=== PATIENT | female | born 1955 | race Caucasian/White ===

== ENCOUNTER 2016-11-06 13:07 | Emergency (ER) | payer OTHER ==
[~2016-11-06] VITALS: Ht 165.1 cm; Wt 72.1 kg
[~2016-11-06 13:07] MED LIST: LOSA50TA6 PO
[2016-11-06] MEDS ORDERED: IV NORMAL SALINE 1000ML BAG 1,000 ML IV SCH (14:01)
[2016-11-06] MEDS ORDERED: 0.9 % SODIUM CHLORIDE 10 ML DISP.SYRIN. IV PRN (14:15)
--- NOTE | 2016-11-06 14:29 | RAD ---
Exam: PA and lateral chest radiograph History: Hypertension, headaches for the past week. Comparison: None. Findings: Cardiomediastinal silhouette is within normal limits for size. Bilateral lung gutierrez are free of focal infiltrate. No pleural effusion is seen. Cholecystectomy clips are present. Impression: No acute cardiopulmonary process.
[2016-11-06 14:51] LABS: BASO # 0.1 x10^3/uL (0.0-0.2); BASO % 1 % (0-3); EOS % 1 % (0-3); HEMATOCRIT 41.6 % (36.0-47.0); HEMOGLOBIN 13.9 g/dL (12.0-15.5); LYMPH # 1.8 x10^3/uL (1.0-4.8); LYMPH % 16 % (24-48); MEAN CORPUSCULAR HEMOGLOBIN 32 pg (25-35); MEAN CORPUSCULAR HGB CONC 34 g/dL (31-37); MEAN CORPUSCULAR VOLUME 94 fL (79-100); MONO % 11 % (0-9); NEUT % 72 % (31-73); PLATELET COUNT 227 x10^3/uL (140-400); RED BLOOD COUNT 4.43 x10^6/uL (3.50-5.40); RED CELL DISTRIBUTION WIDTH 13.1 % (11.5-14.5); WHITE BLOOD COUNT 11.4 x10^3/uL (4.0-11.0)
--- NOTE | 2016-11-06 15:01 | EKG ---
[facility] [address] [place] [address] Test Date: 2016-11-06 Test Time: 13:56:58 Pat Name: KRISTIE ARRINGTON Department: Room: Gender: F Watermaster: : 1955 Requested By: ANJUM VALLEJO Order Number: [id number] Reading MD: Yefri Oscar Measurements Intervals [place] Rate: 81 P: 42 CO: 142 QRS: -10 QRSD: 94 T: 38 QT: 372 QTc: 438 Interpretive Statements SINUS RHYTHM Electronically Signed On 11-10-2016 12:49:55 CDT by Yefri Oscar
--- NOTE | 2016-11-06 15:03 | PHYS DOC ---
Past Medical History Past Medical History: Cancer, Hypertension Past Surgical History: Other Additional Past Surgical Histo: r breast ca lumpectomy Alcohol Use: None Drug Use: None Adult General Chief Complaint Chief Complaint: HYPERTENSION HPI HPI Is is a pleasant 61-year-old female with a history of intermittent vertigo who presents with increased blood pressure last several days. She has noted intermittent headaches over the left faith that come and go she was concerned enough which had headaches that she just her blood pressure has been consistently 1 6-170s over 100. She denies any chest pain, shortness of breath, abdominal pain, change in medications, blood in her stool, blood in her urine or other symptoms. While at work today she noticed a slight headache over her left eyebrow which is not worsened of sudden onset with no focal neurologic deficits including no changes in vision no numbness and tingling no balance problems no change in voice or word finding problems. Described as mild and achy about a 3-5 out of 10 she does not use caffeinated drinks with exception of cough medication. Review of Systems Review of Systems Constitutional: Denies fever or chills [] Eyes: Denies change in visual acuity, redness, or eye pain [] HENT: Denies nasal congestion or sore throat [] Respiratory: Denies cough or shortness of breath [] Cardiovascular: No additional information not addressed in HPI [] GI: Denies abdominal pain, nausea, vomiting, bloody stools or diarrhea [] : Denies dysuria or hematuria [] Musculoskeletal: Denies back pain or joint pain [] Integument: Denies rash or skin lesions [] Neurologic: Mild temporal headache at times today's headache is over the left eyebrow. Worst of life sudden onset Endocrine: Denies polyuria or polydipsia [] Current Medications Current Medications Current Medications Medications (Trade) Dose Ordered Sig/Bk Start Time Stop Time Status Last Admin Dose Admin Sodium Chloride (Normal Saline Flush) 10 ml QSHIFT PRN 11/06/16 14:15 Allergies Allergies Allergies Coded Allergies Type Severity Reaction Last Updated Verified No Known Drug Allergies 10/18/14 No Physical Exam Physical Exam Constitutional: Well developed, well nourished, no acute distress, non-toxic appearance. [] HENT: Normocephalic, atraumatic, bilateral external ears normal, oropharynx moist, no oral exudates, nose normal. [] Eyes: PERRLA, EOMI, conjunctiva normal, no discharge. [] Neck: Normal range of motion, no tenderness, supple, no stridor. [] Cardiovascular:Heart rate regular rhythm, no murmur [] Lungs & Thorax: Bilateral breath sounds clear to auscultation [] Abdomen: Bowel sounds normal, soft, no tenderness, no masses, no pulsatile masses. [] Skin: Warm, dry, no erythema, no rash. [] Back: No tenderness, no CVA tenderness. [] Extremities: No tenderness, no cyanosis, no clubbing, ROM intact, no edema. [] Neurologic: Alert and oriented X 3, normal motor function, normal sensory function, no focal deficits noted. [] Psychologic: Affect normal, judgement normal, mood normal. [] Current Patient Data Vital Signs Vital Signs Date Time Temp Pulse Resp B/P (MAP) Pulse Ox O2 Delivery O2 Flow Rate FiO2 11/06/16 14:13 78 18 169/99 (122) 95 Room Air 11/06/16 14:02 99.0 99.0 Lab Values Laboratory Tests Test 11/06/16 14:20 White Blood Count 11.4 x10^3/uL (4.0-11.0) H Red Blood Count 4.43 x10^6/uL (3.50-5.40) Hemoglobin 13.9 g/dL (12.0-15.5) Hematocrit 41.6 % (36.0-47.0) Mean Corpuscular Volume 94 fL (79-100) Mean Corpuscular Hemoglobin 32 pg (25-35) Mean Corpuscular Hemoglobin Concent 34 g/dL (31-37) Red Cell Distribution Width 13.1 % (11.5-14.5) Platelet Count 227 x10^3/uL (140-400) Neutrophils (%) (Auto) 72 % (31-73) Lymphocytes (%) (Auto) 16 % (24-48) L Monocytes (%) (Auto) 11 % (0-9) H Eosinophils (%) (Auto) 1 % (0-3) Basophils (%) (Auto) 1 % (0-3) Neutrophils # (Auto) 8.2 x10^3uL (1.8-7.7) H Lymphocytes # (Auto) 1.8 x10^3/uL (1.0-4.8) Monocytes # (Auto) 1.2 x10^3/uL (0.0-1.1) H Eosinophils # (Auto) 0.1 x10^3/uL (0.0-0.7) Basophils # (Auto) 0.1 x10^3/uL (0.0-0.2) Laboratory Tests 11/06/16 14:20 Laboratory Tests Test 11/06/16 14:20 White Blood Count 11.4 x10^3/uL (4.0-11.0) Red Blood Count 4.43 x10^6/uL (3.50-5.40) Hemoglobin 13.9 g/dL (12.0-15.5) Hematocrit 41.6 % (36.0-47.0) Mean Corpuscular Volume 94 fL (79-100) Mean Corpuscular Hemoglobin 32 pg (25-35) Mean Corpuscular Hemoglobin Concent 34 g/dL (31-37) Red Cell Distribution Width 13.1 % (11.5-14.5) Platelet Count 227 x10^3/uL (140-400) Neutrophils (%) (Auto) 72 % (31-73) Lymphocytes (%) (Auto) 16 % (24-48) Monocytes (%) (Auto) 11 % (0-9) Eosinophils (%) (Auto) 1 % (0-3) Basophils (%) (Auto) 1 % (0-3) Neutrophils # (Auto) 8.2 x10^3uL (1.8-7.7) Lymphocytes # (Auto) 1.8 x10^3/uL (1.0-4.8) Monocytes # (Auto) 1.2 x10^3/uL (0.0-1.1) Eosinophils # (Auto) 0.1 x10^3/uL (0.0-0.7) Basophils # (Auto) 0.1 x10^3/uL (0.0-0.2) EKG EKG EKG timed at 1356 which is normal sinus rhythm slight left axis deviation otherwise normal looking EKG with no ST segment T-wave changes consistent with acute coronary ischemia. EKG read by Dr. Vallejo. [] Radiology/Procedures Radiology/Procedures [] IMAGING REPORT Signed PATIENT: KRISTIE ARRINGTON ACCOUNT: [id number] : 1955 LOCATION: ER AGE: 61 SEX: F EXAM STATUS: REG ER ORD. PHYSICIAN: ANJUM VALLEJO MD REASON: hypertension evaluation PROCEDURE: CHEST PA & LATERAL Exam: PA and lateral chest radiograph History: Hypertension, headaches for the past week. Comparison: None. Findings: Cardiomediastinal silhouette is within normal limits for size. Bilateral lung gutierrez are free of focal infiltrate. No pleural effusion is seen. Cholecystectomy clips are present. Impression: No acute cardiopulmonary process. DICTATED and SIGNED BY: CANDIDA RUSH MD DATE: 11/06/161425 CC: ANJUM VALLEJO MD; VADIM NOONAN DO ~ Course & Med Decision Making Course & Med Decision Making Pertinent Labs and Imaging studies reviewed. (See chart for details) Patient presents with hypertension and intermittent vertigo that has been plaguing her for years. She is a symptom like this time with the exception of a slight headache. On physical exam is no evidence of temporal arteritis, glaucoma , I doubt subarachnoid hemorrhage or intracranial hemorrhage or mass. Patient has a normal neuro exam and the stroke scale of 0. Patient has no risk for trauma or abuse home. Patient I talked about blood pressure issues that become problematic with above the level. There is no evidence of end organ damage at point with a normal EKG, normal chest x-ray normal. Creatinine and no evidence of elevated troponin. [] Dragon Disclaimer Dragon Disclaimer This electronic medical record was generated, in whole or in part, using a voice recognition dictation system. Departure Departure Impression: Primary Impression: Hypertension Disposition: 01 HOME, SELF-CARE Condition: IMPROVED Referrals: VADIM NOONAN DO (PCP) Patient Instructions: Hypertension Additional Instructions: Please return for any new or increasing symptoms, if you have any elevated blood pressures above 200/100 any symptoms of focal neurologic deficit change in vision chest pain abdominal pain or other concerns. Please follow-up with your primary care doctor for repeat evaluation and possible change of your medical regiment treatment of hypertension. ANJUM VALLEJO MD November 06, 2016 15:03
[2016-11-06 15:10] VITALS: BP 172/87
[2016-11-06] MEDS ORDERED: ACETAMINOPHEN 325 MG TABLET. PO ONE (15:15)
[2016-11-06] MEDS ORDERED: IBUPROFEN 600 MG TABLET. PO ONE (15:15)
[2016-11-06 15:23] LABS: CREATINE KINASE 51 U/L (26-192)
[2016-11-06 15:25] LABS: CKMB MASS < 0.5 ng/mL (0.0-3.6)
[2016-11-06 15:34] LABS: BILIRUBIN,URINE NEGATIVE (NEG); GLUCOSE,URINE NEGATIVE (NEG); NITRITE,URINE POSITIVE (NEG); PROTEIN,URINE 30 mg/dL (NEG-TRACE); UROBILINOGEN,URINE 0.2 mg/dL (0.2 mg/dL)
[2016-11-06 15:52] LABS: BACTERIA,URINE MANY /HPF (0-FEW); RBC,URINE 0 /HPF (0-2); WBC,URINE TNTC /HPF (0-4)
--- NOTE | 2016-11-08 15:38 | VNOTE ---
CALL BACK NOTE CALL BACK Microbiology 11/06/16 Urine Culture - Final, Complete 11/06/16 Urine Culture Result 1 (HOSSEIN) - Final, Complete 11/06/16 Antimicrobic Susceptibility - Final, Complete Patient called stating she was seen in the ED a couple days ago for hypertension. She states she had dysuria. She is requesting results from her urine culture she is in [place]. Her urine culture is positive for UTI. I called in a prescription for cephalexin 500 mg one by mouth twice a day at her pharmacy in [place]. Name of the pharmacy is [facility]. Phone number is KARTIK SOTO APRN Nov 08, 2016 15:38
== END 2016-11-06 15:35 | disposition home or self-care (01) ==
LOC: ER 13:07
DX: I10 Essential (primary) hypertension (principal)
CPT/HCPCS: 36415; 71020; 81001; 82553; 83880; 84484; 85027; 87086; 87186; 93005; 96360; 99285; J7030

== ENCOUNTER 2018-07-17 06:28 | Inpatient (IN) | payer MEDICARE, OTHER ==
[~2018-07-17] VITALS: Ht 165.1 cm; Wt 67.6 kg
[~2018-07-17 06:28] MED LIST changes: +LOSA-73 PO; -LOSA50TA6 PO
[2018-07-17] MEDS ORDERED: ACETAMINOPHEN 500 MG TABLET PO ONE (06:45)
[2018-07-17] MEDS ORDERED: IV NORMAL SALINE 1000ML BAG 1,000 ML IV SCH (06:45)
--- NOTE | 2018-07-17 08:00 | RAD ---
Examination: PORTABLE CHEST 1V History: fever,dizzy, fell today Comparison/Correlation: 11/06/2016 two-view chest x-ray exam Findings: A portable upright frontal view chest was obtained. Heart size and pulmonary vasculature are normal. No infiltrate or effusion. Bony structures are unremarkable. No pneumothorax. Right upper quadrant surgical clips are present. Impression: No active disease. If fracture is a persistent concern, consider further imaging. Electronically signed by: Amandeep Sutherland MD (07/17/2018 7:56 AM) [facility]
[2018-07-17 08:12] LABS: INFLUENZA A PATIENT NEGATIVE (NEGATIVE); INFLUENZA B PATIENT NEGATIVE (NEGATIVE)
[2018-07-17 08:32] LABS: BASO # 0.1 x10^3/uL (0.0-0.2); BASO % 1 % (0-3); EOS % 0 % (0-3); HEMOGLOBIN 11.4 g/dL (12.0-15.5); LYMPH # 0.8 x10^3/uL (1.0-4.8); LYMPH % 7 % (24-48); MEAN CORPUSCULAR HEMOGLOBIN 32 pg (25-35); MEAN CORPUSCULAR HGB CONC 34 g/dL (31-37); MEAN CORPUSCULAR VOLUME 94 fL (79-100); MONO # 1.2 x10^3/uL (0.0-1.1); MONO % 11 % (0-9); NEUT # 9.3 x10^3uL (1.8-7.7); NEUT % 81 % (31-73); PLATELET COUNT 89 x10^3/uL (140-400); RED BLOOD COUNT 3.63 x10^6/uL (3.50-5.40); RED CELL DISTRIBUTION WIDTH 14.3 % (11.5-14.5); WHITE BLOOD COUNT 11.4 x10^3/uL (4.0-11.0)
[2018-07-17 08:36] LABS: GFR 55.6; POTASSIUM 3.4 mmol/L (3.5-5.1)
[2018-07-17 08:51] LABS: ALBUMIN 3.4 g/dL (3.4-5.0); TOTAL BILIRUBIN 1.1 mg/dL (0.2-1.0); TOTAL PROTEIN 6.8 g/dL (6.4-8.2)
[2018-07-17 09:48] LABS: BILIRUBIN,URINE NEGATIVE (NEG); CLARITY,URINE CLOUDY; COLOR,URINE YELLOW; NITRITE,URINE POSITIVE (NEG); PH,URINE 5.5; PROTEIN,URINE NEGATIVE (NEG-TRACE); UROBILINOGEN,URINE 0.2 mg/dL (0.2 mg/dL)
[2018-07-17 09:54] LABS: BACTERIA,URINE MANY /HPF (0-FEW); RBC,URINE FOBS /HPF (0-2); WBC,URINE TNTC /HPF (0-4)
--- NOTE | 2018-07-17 10:06 | PHYS DOC ---
Past Medical History Past Medical History: Anxiety, Cancer, Hypertension Past Surgical History: Cholecystectomy, Tonsillectomy, Other Additional Past Surgical Histo: r breast ca lumpectomy Alcohol Use: None Drug Use: None Adult General Chief Complaint Chief Complaint: DIZZY/LIGHT HEADED HPI HPI Patient is 63-year-old female who presents with complaint of confusion, headache and dizziness. Patient states that she had fallen at her house while she was up trying to walk to the bathroom this morning. She does indicate that she hit the back of her head but did not lose consciousness. She complains of a mild headache at this time. She also indicates that she has some lower back pain and states the back pain was present prior to the fall. She states that she has had some urinary incontinence over the last few days but states that she has not had any urinary discomfort per se. Patient does state that she had felt confused out at the house and is still feeling like she is out of sorts. Patient states that she just recently had an MRI of the brain due to having continued vertigo/disequilibrium since June. Review of Systems Review of Systems Constitutional: Positive fever and chills [] Respiratory: Denies cough or shortness of breath [] Cardiovascular: No additional information not addressed in HPI [] GI: Denies abdominal pain, nausea, vomiting or diarrhea [] : Positive urinary frequency and stress incontinence [] Musculoskeletal: Complains of lower back pain [] Neurologic: Complains of headache, dizziness, generalized weakness without sensory changes [] All other systems were reviewed and found to be within normal limits, except as documented in this note. Current Medications Current Medications Current Medications Medications (Trade) Dose Ordered Sig/[facility] Start Time Stop Time Status Last Admin Dose Admin Acetaminophen (Tylenol) 1,000 mg 1X ONCE 07/17/18 06:45 07/17/18 06:46 DC 07/17/18 08:13 1,000 MG Sodium Chloride 1,000 ml @ 1,000 mls/hr Q1H 07/17/18 06:45 07/17/18 07:44 DC 07/17/18 08:15 1,000 MLS/HR Allergies Allergies Allergies Uncoded Allergies Type Severity Reaction Last Updated Verified SHINGLES VACCINE Allergy Mild L BREAST BRUISED 07/17/18 Physical Exam Physical Exam Constitutional: Well developed, well nourished, no acute distress, non-toxic appearance. [] HENT: Normocephalic, atraumatic, bilateral external ears normal, oropharynx moist, no oral exudates, nose normal. [] Eyes: PERRLA, EOMI, conjunctiva normal, no discharge. [] Neck: Normal range of motion, no tenderness, supple, no stridor. [] Cardiovascular: Regular rate and rhythm [] Lungs & Thorax: Bilateral breath sounds clear to auscultation [] Abdomen: Bowel sounds normal, soft, no tenderness. [] Skin: Warm, dry, no erythema, no rash. [] Extremities: No tenderness, no cyanosis, no clubbing, ROM intact, no edema. [] Neurologic: Awake and alert, normal motor function, normal sensory function, no focal deficits noted. [] Current Patient Data Vital Signs Vital Signs Date Time Temp Pulse Resp B/P (MAP) Pulse Ox O2 Delivery O2 Flow Rate FiO2 07/17/18 07:01 90 18 94 07/17/18 06:28 100.8 127/74 (91) Room Air 100.8 Lab Values Laboratory Tests Test 07/17/18 07:42 07/17/18 08:00 Influenza Type A Antigen Negative (NEGATIVE) Influenza Type B Antigen Negative (NEGATIVE) White Blood Count 11.4 x10^3/uL (4.0-11.0) H Red Blood Count 3.63 x10^6/uL (3.50-5.40) Hemoglobin 11.4 g/dL (12.0-15.5) L Hematocrit 34.0 % (36.0-47.0) L Mean Corpuscular Volume 94 fL (79-100) Mean Corpuscular Hemoglobin 32 pg (25-35) Mean Corpuscular Hemoglobin Concent 34 g/dL (31-37) Red Cell Distribution Width 14.3 % (11.5-14.5) Platelet Count 89 x10^3/uL (140-400) L Neutrophils (%) (Auto) 81 % (31-73) H Lymphocytes (%) (Auto) 7 % (24-48) L Monocytes (%) (Auto) 11 % (0-9) H Eosinophils (%) (Auto) 0 % (0-3) Basophils (%) (Auto) 1 % (0-3) Neutrophils # (Auto) 9.3 x10^3uL (1.8-7.7) H Lymphocytes # (Auto) 0.8 x10^3/uL (1.0-4.8) L Monocytes # (Auto) 1.2 x10^3/uL (0.0-1.1) H Eosinophils # (Auto) 0.0 x10^3/uL (0.0-0.7) Basophils # (Auto) 0.1 x10^3/uL (0.0-0.2) Sodium Level 138 mmol/L (136-145) Potassium Level 3.4 mmol/L (3.5-5.1) L Chloride Level 100 mmol/L (98-107) Carbon Dioxide Level 28 mmol/L (21-32) Anion Gap 10 (6-14) Blood Urea Nitrogen 31 mg/dL (7-20) H Creatinine 1.0 mg/dL (0.6-1.0) Estimated GFR (Cockcroft-Gault) 55.6 BUN/Creatinine Ratio 31 (6-20) H Glucose Level 106 mg/dL (70-99) H Lactic Acid Level 0.7 mmol/L (0.4-2.0) Calcium Level 9.0 mg/dL (8.5-10.1) Total Bilirubin 1.1 mg/dL (0.2-1.0) H Aspartate Amino Transferase (AST) 14 U/L (15-37) L Alanine Aminotransferase (ALT) 22 U/L (14-59) Alkaline Phosphatase 76 U/L (46-116) Total Protein 6.8 g/dL (6.4-8.2) Albumin 3.4 g/dL (3.4-5.0) Albumin/Globulin Ratio 1.0 (1.0-1.7) Group A Streptococcus Rapid Negative (NEGATIVE) Laboratory Tests 07/17/18 08:00 Laboratory Tests 07/17/18 08:00 EKG EKG [] Radiology/Procedures Radiology/Procedures [] Course & Med Decision Making Course & Med Decision Making Pertinent Labs and Imaging studies reviewed. (See chart for details) [] Dragon Disclaimer Dragon Disclaimer This electronic medical record was generated, in whole or in part, using a voice recognition dictation system. Departure Departure Impression: Primary Impression: UTI (urinary tract infection) Additional Impression: Altered mental state Disposition: ADMITTED INPATIENT Admitting Physician: Other Condition: IMPROVED (Dr. Brannon) Referrals: VADIM NOONAN DO (PCP) Problem Qualifiers Primary Impression: UTI (urinary tract infection) Urinary tract infection type: site unspecified Hematuria presence: without hematuria Qualified Codes: N39.0 - Urinary tract infection, site not specified Additional Impression: Altered mental state Altered mental status type: disorientation Qualified Codes: R41.0 - Disorientation, unspecified JJ VYAS Jr., DO Jul 17, 2018 10:06
[2018-07-17] MEDS ORDERED: cefTRIAXone IV Push 1 GM VIAL. IVP ONE (10:15)
[2018-07-17] MEDS ORDERED: ONDANSETRON PF 4 MG/2 ML VIAL. IV PRN (10:15)
--- NOTE | 2018-07-17 10:18 | RAD ---
CT HEAD INDICATION: HEAD INJURY COMPARISON: None Available. Exposure: One or more of the following individualized dose reduction techniques were utilized for this examination: 1. Automated exposure control 2. Adjustment of the mA and/or kV according to patient size 3. Use of iterative reconstruction technique TECHNIQUE: 5 mm contiguous axial images were obtained from the skull base to the vertex in both bone and soft tissue algorithm. FINDINGS: Mild bilateral periventricular white matter hypodensities likely chronic small vessel ischemic disease. No evidence of acute intracranial hemorrhage. No extra-axial fluid collections. No mass effect or midline shift. Ventricular size is appropriate. Basal cisterns are patent. No fractures identified.Barry-white differentiation is preserved.Globes and orbits are within normal limits. Paranasal sinuses and mastoid air cells are clear. IMPRESSION: No acute intracranial findings. Electronically signed by: Oseas Reyes MD (07/17/2018 10:14 AM) [id number]
[2018-07-17 11:56] VITALS: BP 113/55
[2018-07-17] MEDS ORDERED: CALC-337 PO (12:40)
[2018-07-17] MEDS ORDERED: MULT1TAB52 PO (12:40)
[2018-07-17] MEDS: IV NORMAL SALINE 1000ML BAG 1,000 ML IV SCH ×2 (12:42→20:55)
[2018-07-17 15:00] VITALS: BP 129/59
[2018-07-17] MEDS: CALCIUM CARB/VIT D3 500/200 TABLET. PO SCH (17:44)
[2018-07-17] MEDS: LOSARTAN POTASSIUM 50 MG TABLET. PO SCH (17:48)
--- NOTE | 2018-07-17 17:50 | NUR ---
[employer] went in to do orthostatic blood pressures per Dr orders. Pt refused and reported she felt dizzy. Returned to room with extra staff and Orthos completed. lying 178/87 sitting 183/97 standing 168/83. Pt did complain of feeling faint while standing. Pt was able to verbalize thoughts but reports this is similar to the episode that brought her into the ER. Pt able to swallow and losartan and calcium given. Pt was assisted to [facility] with assist x2. She was able to urinate. Denies pain, numbness or tingling. Denies nausea. Pt appears scared. Was shaky and clammy. FSBS 90. Call was placed to Dr Brannon and I spoke to Dr Schlute. Reviewed all my findings and at this time he gave instructions to monitor pt. Pt continues on telemetry and is SR in the 80s. No arrhythmias noted since admitted to unit.
--- NOTE | 2018-07-17 18:21 | PDOC1 ---
History and Physical Date of Admission Date of Admission 07/17/2018 Identification/Chief Complaint Chief Complaint I was confused Problems: (1) Altered mental state (2) UTI (urinary tract infection) Source Source: Chart review, Patient History of Present Illness History of Present Illness Patient is a 63-year-old female with past medical history off breast Cancer and Hypertension. Patient Is in Remission, She Was in Her Usual State of Health until This Morning When She Woke up to Go to the Bathroom. Last Thing She Remembers Is Sitting at the Edge of Her Bed She Remembers Something Was Being on the Floor of Her Bathroom Where She Had an "Accident". Most of Her Story Is Provided by the Did Not Witness Seizure -Like Activity There Was No Evidence of Trauma to Her Head. The Patient Denies Any Aura Type of Symptoms She Has Not Had Tongue Trauma. The Patient Apparently Was Somewhat Confused for about 10 Minutes. The Patient's Decided to Call EMS Due To the Symptoms of of his . Patient has not had any recent changes to her medications. Of note is that she was recently evaluated for vertigo. She was also sent for an MRI of the head apparently she wanted to be ruled out for an acoustic neuroma. The patient denies headaches on the regular basis and has been cleared also by her oncologist in follow-up for her rest cancer. She had a bad reaction to her zoster shingles vaccine that prompted this workup since she had some left arm swelling and redness. The result of her workup was negative. She was brought to the emergency department where she was evaluated and found to have a urinary tract infection patient has urinary incontinence and has had some urinary discomfort over the last couple days no fever or chills were reported no costovertebral angle tenderness reported either. We have been asked to admit the patient for observation and treatment of her urinary tract infection Current Problem List Problem List Problems Medical Problems: (1) Altered mental state Status: Acute (2) UTI (urinary tract infection) Status: Acute Current Medications Current Medications Current Medications Medications (Trade) Dose Ordered Sig/Bk Start Time Stop Time Status Last Admin Dose Admin Acetaminophen (Tylenol) 650 mg PRN Q4HRS PRN 07/17/18 10:15 07/18/18 10:14 Calcium/Vitamin D (Oscal D 500mg/ 200uts) 1 tab BIDWMEALS 07/17/18 17:00 07/17/18 17:44 1 TAB Ceftriaxone Sodium (Rocephin) 1 gm 1X ONCE 07/17/18 10:15 07/17/18 10:16 DC 07/17/18 10:24 1 GM Losartan Potassium (Cozaar) 50 mg DAILY 07/18/18 09:00 UNV Multivitamins (Thera M Plus) 1 tab DAILY 07/18/18 09:00 Ondansetron HCl (Zofran) 4 mg PRN Q8HRS PRN 07/17/18 10:15 07/18/18 10:14 Sodium Chloride 1,000 ml @ 125 mls/hr Q8H 07/17/18 10:07 07/18/18 10:06 07/17/18 12:42 125 MLS/HR Allergies Allergies Allergies Uncoded Allergies Type Severity Reaction Last Updated Verified SHINGLES VACCINE Allergy Mild L BREAST BRUISED 07/17/18 ROS Review of System CONSTITUTIONAL: No fever or chills EYES: No recent changes SKIN: No rash or itching CARDIOVASCULAR: No chest pain, syncope, palpitations, or edema RESPIRATORY: No SOB or cough GASTROINTESTINAL: No nausea, vomiting or abdominal pain NEUROLOGICAL: No headaches or weakness ENDOCRINE: No cold or heat intolerance GENITOURINARY: No urgency or frequency of urination MUSCULOSKELETAL: No back pain or joint pain LYMPHATICS: No enlarged lymph nodes PSYCHIATRIC: No anxiety or depression Physical Exam Physical Exam GEN.: No apparent distress. Alert and oriented. HEENT: Head is normocephalic, atraumatic NECK: Supple. LUNGS: Clear to auscultation. HEART: RRR, S1, S2 present. Peripheral pulses intact ABDOMEN: Soft, nontender. Positive bowel sounds. EXTREMITIES: Without any cyanosis. NEUROLOGIC: Normal speech, normal tone PSYCHIATRIC: Normal affect, normal mood. SKIN: No ulcerations Vitals Vitals Vital Signs Date Time Temp Pulse Resp B/P (MAP) Pulse Ox O2 Delivery O2 Flow Rate FiO2 07/17/18 17:48 84 178/87 07/17/18 15:00 97.9 18 97 Room Air 97.9 Labs Labs Laboratory Tests Test 07/17/18 07:42 07/17/18 08:00 07/17/18 09:05 Influenza Type A Antigen Negative (NEGATIVE) Influenza Type B Antigen Negative (NEGATIVE) White Blood Count 11.4 x10^3/uL (4.0-11.0) Red Blood Count 3.63 x10^6/uL (3.50-5.40) Hemoglobin 11.4 g/dL (12.0-15.5) Hematocrit 34.0 % (36.0-47.0) Mean Corpuscular Volume 94 fL (79-100) Mean Corpuscular Hemoglobin 32 pg (25-35) Mean Corpuscular Hemoglobin Concent 34 g/dL (31-37) Red Cell Distribution Width 14.3 % (11.5-14.5) Platelet Count 89 x10^3/uL (140-400) Neutrophils (%) (Auto) 81 % (31-73) Lymphocytes (%) (Auto) 7 % (24-48) Monocytes (%) (Auto) 11 % (0-9) Eosinophils (%) (Auto) 0 % (0-3) Basophils (%) (Auto) 1 % (0-3) Neutrophils # (Auto) 9.3 x10^3uL (1.8-7.7) Lymphocytes # (Auto) 0.8 x10^3/uL (1.0-4.8) Monocytes # (Auto) 1.2 x10^3/uL (0.0-1.1) Eosinophils # (Auto) 0.0 x10^3/uL (0.0-0.7) Basophils # (Auto) 0.1 x10^3/uL (0.0-0.2) Sodium Level 138 mmol/L (136-145) Potassium Level 3.4 mmol/L (3.5-5.1) Chloride Level 100 mmol/L (98-107) Carbon Dioxide Level 28 mmol/L (21-32) Anion Gap 10 (6-14) Blood Urea Nitrogen 31 mg/dL (7-20) Creatinine 1.0 mg/dL (0.6-1.0) Estimated GFR (Cockcroft-Gault) 55.6 BUN/Creatinine Ratio 31 (6-20) Glucose Level 106 mg/dL (70-99) Lactic Acid Level 0.7 mmol/L (0.4-2.0) Calcium Level 9.0 mg/dL (8.5-10.1) Total Bilirubin 1.1 mg/dL (0.2-1.0) Aspartate Amino Transf (AST/SGOT) 14 U/L (15-37) Alanine Aminotransferase (ALT/SGPT) 22 U/L (14-59) Alkaline Phosphatase 76 U/L (46-116) Total Protein 6.8 g/dL (6.4-8.2) Albumin 3.4 g/dL (3.4-5.0) Albumin/Globulin Ratio 1.0 (1.0-1.7) Group A Streptococcus Rapid Negative (NEGATIVE) Urine Collection Type Unknown Urine Color Yellow Urine Clarity Cloudy Urine pH 5.5 Urine Specific [place] 1.015 Urine Protein Negative mg/dL (NEG-TRACE) Urine Glucose (UA) Negative mg/dL (NEG) Urine Ketones (Stick) Negative mg/dL (NEG) Urine Blood Moderate (NEG) Urine Nitrite Positive (NEG) Urine Bilirubin Negative (NEG) Urine Urobilinogen Dipstick 0.2 mg/dL (0.2 mg/dL) Urine Leukocyte Esterase Large (NEG) Urine RBC Fobs /HPF (0-2) Urine WBC Tntc /HPF (0-4) Urine Bacteria Many /HPF (0-FEW) Laboratory Tests Test 07/17/18 07:42 07/17/18 08:00 07/17/18 09:05 Influenza Type A Antigen Negative (NEGATIVE) Influenza Type B Antigen Negative (NEGATIVE) White Blood Count 11.4 x10^3/uL (4.0-11.0) Red Blood Count 3.63 x10^6/uL (3.50-5.40) Hemoglobin 11.4 g/dL (12.0-15.5) Hematocrit 34.0 % (36.0-47.0) Mean Corpuscular Volume 94 fL (79-100) Mean Corpuscular Hemoglobin 32 pg (25-35) Mean Corpuscular Hemoglobin Concent 34 g/dL (31-37) Red Cell Distribution Width 14.3 % (11.5-14.5) Platelet Count 89 x10^3/uL (140-400) Neutrophils (%) (Auto) 81 % (31-73) Lymphocytes (%) (Auto) 7 % (24-48) Monocytes (%) (Auto) 11 % (0-9) Eosinophils (%) (Auto) 0 % (0-3) Basophils (%) (Auto) 1 % (0-3) Neutrophils # (Auto) 9.3 x10^3uL (1.8-7.7) Lymphocytes # (Auto) 0.8 x10^3/uL (1.0-4.8) Monocytes # (Auto) 1.2 x10^3/uL (0.0-1.1) Eosinophils # (Auto) 0.0 x10^3/uL (0.0-0.7) Basophils # (Auto) 0.1 x10^3/uL (0.0-0.2) Sodium Level 138 mmol/L (136-145) Potassium Level 3.4 mmol/L (3.5-5.1) Chloride Level 100 mmol/L (98-107) Carbon Dioxide Level 28 mmol/L (21-32) Anion Gap 10 (6-14) Blood Urea Nitrogen 31 mg/dL (7-20) Creatinine 1.0 mg/dL (0.6-1.0) Estimated GFR (Cockcroft-Gault) 55.6 BUN/Creatinine Ratio 31 (6-20) Glucose Level 106 mg/dL (70-99) Lactic Acid Level 0.7 mmol/L (0.4-2.0) Calcium Level 9.0 mg/dL (8.5-10.1) Total Bilirubin 1.1 mg/dL (0.2-1.0) Aspartate Amino Transf (AST/SGOT) 14 U/L (15-37) Alanine Aminotransferase (ALT/SGPT) 22 U/L (14-59) Alkaline Phosphatase 76 U/L (46-116) Total Protein 6.8 g/dL (6.4-8.2) Albumin 3.4 g/dL (3.4-5.0) Albumin/Globulin Ratio 1.0 (1.0-1.7) Group A Streptococcus Rapid Negative (NEGATIVE) Urine Collection Type Unknown Urine Color Yellow Urine Clarity Cloudy Urine pH 5.5 Urine Specific [place] 1.015 Urine Protein Negative mg/dL (NEG-TRACE) Urine Glucose (UA) Negative mg/dL (NEG) Urine Ketones (Stick) Negative mg/dL (NEG) Urine Blood Moderate (NEG) Urine Nitrite Positive (NEG) Urine Bilirubin Negative (NEG) Urine Urobilinogen Dipstick 0.2 mg/dL (0.2 mg/dL) Urine Leukocyte Esterase Large (NEG) Urine RBC Fobs /HPF (0-2) Urine WBC Tntc /HPF (0-4) Urine Bacteria Many /HPF (0-FEW) VTE Prophylaxis Ordered VTE Prophylaxis Devices: No VTE Pharmacological Prophylaxi: Yes Assessment/Plan Assessment/Plan UTI Fall from own height essential hypertension history of breast can er in remission history of vertigo status post ent evaluation recent MRI of the head with normal findings as per patient Plan: will try to request records contknue with rocephin follow cultures reassess in the am resume home meds further recommendations based on clinical c ourse fall precautions DVt prophylaxis:lovenox Problem Qualifiers (1) Altered mental state: Altered mental status type: disorientation Qualified Codes: R41.0 - Disorientation, unspecified (2) UTI (urinary tract infection): Urinary tract infection type: site unspecified Hematuria presence: without hematuria Qualified Codes: N39.0 - Urinary tract infection, site not specified FLORIAN HOLDEN MD Jul 17, 2018 18:21
[2018-07-17 19:54] VITALS: BP 148/72
[2018-07-17] MEDS: ACETAMINOPHEN 325 MG TABLET. PO PRN (20:54)
[2018-07-17 23:10] VITALS: BP 111/62
[2018-07-18] VITALS (10 sets, daily range): BP systolic 105–141; BP diastolic 49–97
[2018-07-18 03:21] LABS: BASO # 0.1 x10^3/uL (0.0-0.2); BASO % 1 % (0-3); EOS # 0.1 x10^3/uL (0.0-0.7); EOS % 1 % (0-3); HEMATOCRIT 39.8 % (36.0-47.0); LYMPH # 1.7 x10^3/uL (1.0-4.8); LYMPH % 17 % (24-48); MEAN CORPUSCULAR HEMOGLOBIN 31 pg (25-35); MEAN CORPUSCULAR HGB CONC 33 g/dL (31-37); MEAN CORPUSCULAR VOLUME 95 fL (79-100); MONO # 1.3 x10^3/uL (0.0-1.1); MONO % 12 % (0-9); NEUT # 7.2 x10^3uL (1.8-7.7); NEUT % 69 % (31-73); PLATELET COUNT 216 x10^3/uL (140-400); RED BLOOD COUNT 4.19 x10^6/uL (3.50-5.40); RED CELL DISTRIBUTION WIDTH 14.3 % (11.5-14.5); WHITE BLOOD COUNT 10.5 x10^3/uL (4.0-11.0)
[2018-07-18 03:43] LABS: CALCIUM 8.9 mg/dL (8.5-10.1); CREATININE 0.8 mg/dL (0.6-1.0); POTASSIUM 3.7 mmol/L (3.5-5.1)
[2018-07-18] MEDS: IV NORMAL SALINE 1000ML BAG 1,000 ML IV SCH (04:15)
[2018-07-18] MEDS: CALCIUM CARB/VIT D3 500/200 TABLET. PO SCH ×2 (08:30→17:51)
[2018-07-18] MEDS: LOSARTAN POTASSIUM 50 MG TABLET. PO SCH (08:30)
[2018-07-18] MEDS: ACETAMINOPHEN 325 MG TABLET. PO PRN (08:31)
[2018-07-18] MEDS: MULTIVITAMIN with MINERAL TABLET. PO SCH (08:34)
[2018-07-18] MEDS ORDERED: LOSARTAN POTASSIUM 50 MG TABLET. PO SCH (09:00)
--- NOTE | 2018-07-18 11:33 | PDOC ---
PROGRESS NOTES Chief Complaint Chief Complaint UTI Confusion secondary to the above versus hypertensive encephalopathy Essential hypertension with episodes of uncontrolled blood pressure Plan Ruddy Continue with losartan We'll give second dose of Rocephin today Wait for cultures to be reported in the a.m. Reassess in the a.m. hopefully discharge History of Present Illness History of Present Illness Patient relates having had another episode of somewhat not feeling well in her head. The patient says that she couldn't get her head together and at that moment apparently did check her blood pressure was high. Reassurance has been provided no slurred speech no focal neurological deficits were reported either by the patient or the nursing staff. No fever or chills reported Vitals Vitals Vital Signs Date Time Temp Pulse Resp B/P (MAP) Pulse Ox O2 Delivery O2 Flow Rate FiO2 07/18/18 11:00 112/65 (81) 07/18/18 11:00 98.1 58 18 96 Room Air 98.1 Physical Exam Physical Exam Gen.: well-developed well-nourished in no apparent distress Head: Normal shape atraumatic Eyes: Pupils equal reactive to light and accommodation, normal conjunctivae and lids Ears: Normal shape Nose: Normal shape no trauma Mouth: No exudates of the back of throat no thrush no lesions Neck: Supple no JVD no carotid bruit or lymphadenopathy no thyromegaly Chest: Lungs clear to auscultation with good inspiratory effort no crackles rales or rhonchi Cardiovascular: S1-S2 regular rhythm no murmurs gallops or rubs Abdomen: Bowel sounds present soft nontender no hepatosplenomegaly appreciated sign Extremities: No clubbing no cyanosis no edema peripheral pulses palpated bilaterally Neurological: Alert awake oriented in person time place and situation, cranial nerves II through XII intact, no motor or sensory deficits appreciated Psych: Appropriate mood, cooperative Labs LABS Laboratory Tests Test 07/17/18 17:50 07/18/18 02:50 Glucose (Fingerstick) 90 mg/dL (70-99) White Blood Count 10.5 x10^3/uL (4.0-11.0) Red Blood Count 4.19 x10^6/uL (3.50-5.40) Hemoglobin 13.0 g/dL (12.0-15.5) Hematocrit 39.8 % (36.0-47.0) Mean Corpuscular Volume 95 fL (79-100) Mean Corpuscular Hemoglobin 31 pg (25-35) Mean Corpuscular Hemoglobin Concent 33 g/dL (31-37) Red Cell Distribution Width 14.3 % (11.5-14.5) Platelet Count 216 x10^3/uL (140-400) Neutrophils (%) (Auto) 69 % (31-73) Lymphocytes (%) (Auto) 17 % (24-48) Monocytes (%) (Auto) 12 % (0-9) Eosinophils (%) (Auto) 1 % (0-3) Basophils (%) (Auto) 1 % (0-3) Neutrophils # (Auto) 7.2 x10^3uL (1.8-7.7) Lymphocytes # (Auto) 1.7 x10^3/uL (1.0-4.8) Monocytes # (Auto) 1.3 x10^3/uL (0.0-1.1) Eosinophils # (Auto) 0.1 x10^3/uL (0.0-0.7) Basophils # (Auto) 0.1 x10^3/uL (0.0-0.2) Sodium Level 144 mmol/L (136-145) Potassium Level 3.7 mmol/L (3.5-5.1) Chloride Level 109 mmol/L (98-107) Carbon Dioxide Level 29 mmol/L (21-32) Anion Gap 6 (6-14) Blood Urea Nitrogen 17 mg/dL (7-20) Creatinine 0.8 mg/dL (0.6-1.0) Estimated GFR (Cockcroft-Gault) 72.0 Glucose Level 83 mg/dL (70-99) Calcium Level 8.9 mg/dL (8.5-10.1) Review of Systems Review of Systems Reviewed and found pertinent only as per history of present illness otherwise 14 point review is negative Assessment and Plan Assessmemt and Plan Problems Medical Problems: (1) Altered mental state Status: Acute (2) UTI (urinary tract infection) Status: Acute Comment Review of Relevant I have reviewed the following items yony (where applicable) has been applied. Labs Laboratory Tests Test 07/17/18 07:42 07/17/18 08:00 07/17/18 09:05 07/17/18 17:50 Influenza Type A Antigen Negative (NEGATIVE) Influenza Type B Antigen Negative (NEGATIVE) White Blood Count 11.4 x10^3/uL (4.0-11.0) Red Blood Count 3.63 x10^6/uL (3.50-5.40) Hemoglobin 11.4 g/dL (12.0-15.5) Hematocrit 34.0 % (36.0-47.0) Mean Corpuscular Volume 94 fL (79-100) Mean Corpuscular Hemoglobin 32 pg (25-35) Mean Corpuscular Hemoglobin Concent 34 g/dL (31-37) Red Cell Distribution Width 14.3 % (11.5-14.5) Platelet Count 89 x10^3/uL (140-400) Neutrophils (%) (Auto) 81 % (31-73) Lymphocytes (%) (Auto) 7 % (24-48) Monocytes (%) (Auto) 11 % (0-9) Eosinophils (%) (Auto) 0 % (0-3) Basophils (%) (Auto) 1 % (0-3) Neutrophils # (Auto) 9.3 x10^3uL (1.8-7.7) Lymphocytes # (Auto) 0.8 x10^3/uL (1.0-4.8) Monocytes # (Auto) 1.2 x10^3/uL (0.0-1.1) Eosinophils # (Auto) 0.0 x10^3/uL (0.0-0.7) Basophils # (Auto) 0.1 x10^3/uL (0.0-0.2) Sodium Level 138 mmol/L (136-145) Potassium Level 3.4 mmol/L (3.5-5.1) Chloride Level 100 mmol/L (98-107) Carbon Dioxide Level 28 mmol/L (21-32) Anion Gap 10 (6-14) Blood Urea Nitrogen 31 mg/dL (7-20) Creatinine 1.0 mg/dL (0.6-1.0) Estimated GFR (Cockcroft-Gault) 55.6 BUN/Creatinine Ratio 31 (6-20) Glucose Level 106 mg/dL (70-99) Lactic Acid Level 0.7 mmol/L (0.4-2.0) Calcium Level 9.0 mg/dL (8.5-10.1) Total Bilirubin 1.1 mg/dL (0.2-1.0) Aspartate Amino Transf (AST/SGOT) 14 U/L (15-37) Alanine Aminotransferase (ALT/SGPT) 22 U/L (14-59) Alkaline Phosphatase 76 U/L (46-116) Total Protein 6.8 g/dL (6.4-8.2) Albumin 3.4 g/dL (3.4-5.0) Albumin/Globulin Ratio 1.0 (1.0-1.7) Group A Streptococcus Rapid Negative (NEGATIVE) Urine Collection Type Unknown Urine Color Yellow Urine Clarity Cloudy Urine pH 5.5 Urine Specific [place] 1.015 Urine Protein Negative mg/dL (NEG-TRACE) Urine Glucose (UA) Negative mg/dL (NEG) Urine Ketones (Stick) Negative mg/dL (NEG) Urine Blood Moderate (NEG) Urine Nitrite Positive (NEG) Urine Bilirubin Negative (NEG) Urine Urobilinogen Dipstick 0.2 mg/dL (0.2 mg/dL) Urine Leukocyte Esterase Large (NEG) Urine RBC Fobs /HPF (0-2) Urine WBC Tntc /HPF (0-4) Urine Bacteria Many /HPF (0-FEW) Glucose (Fingerstick) 90 mg/dL (70-99) Test 07/18/18 02:50 White Blood Count 10.5 x10^3/uL (4.0-11.0) Red Blood Count 4.19 x10^6/uL (3.50-5.40) Hemoglobin 13.0 g/dL (12.0-15.5) Hematocrit 39.8 % (36.0-47.0) Mean Corpuscular Volume 95 fL (79-100) Mean Corpuscular Hemoglobin 31 pg (25-35) Mean Corpuscular Hemoglobin Concent 33 g/dL (31-37) Red Cell Distribution Width 14.3 % (11.5-14.5) Platelet Count 216 x10^3/uL (140-400) Neutrophils (%) (Auto) 69 % (31-73) Lymphocytes (%) (Auto) 17 % (24-48) Monocytes (%) (Auto) 12 % (0-9) Eosinophils (%) (Auto) 1 % (0-3) Basophils (%) (Auto) 1 % (0-3) Neutrophils # (Auto) 7.2 x10^3uL (1.8-7.7) Lymphocytes # (Auto) 1.7 x10^3/uL (1.0-4.8) Monocytes # (Auto) 1.3 x10^3/uL (0.0-1.1) Eosinophils # (Auto) 0.1 x10^3/uL (0.0-0.7) Basophils # (Auto) 0.1 x10^3/uL (0.0-0.2) Sodium Level 144 mmol/L (136-145) Potassium Level 3.7 mmol/L (3.5-5.1) Chloride Level 109 mmol/L (98-107) Carbon Dioxide Level 29 mmol/L (21-32) Anion Gap 6 (6-14) Blood Urea Nitrogen 17 mg/dL (7-20) Creatinine 0.8 mg/dL (0.6-1.0) Estimated GFR (Cockcroft-Gault) 72.0 Glucose Level 83 mg/dL (70-99) Calcium Level 8.9 mg/dL (8.5-10.1) Laboratory Tests Test 07/17/18 17:50 07/18/18 02:50 Glucose (Fingerstick) 90 mg/dL (70-99) White Blood Count 10.5 x10^3/uL (4.0-11.0) Red Blood Count 4.19 x10^6/uL (3.50-5.40) Hemoglobin 13.0 g/dL (12.0-15.5) Hematocrit 39.8 % (36.0-47.0) Mean Corpuscular Volume 95 fL (79-100) Mean Corpuscular Hemoglobin 31 pg (25-35) Mean Corpuscular Hemoglobin Concent 33 g/dL (31-37) Red Cell Distribution Width 14.3 % (11.5-14.5) Platelet Count 216 x10^3/uL (140-400) Neutrophils (%) (Auto) 69 % (31-73) Lymphocytes (%) (Auto) 17 % (24-48) Monocytes (%) (Auto) 12 % (0-9) Eosinophils (%) (Auto) 1 % (0-3) Basophils (%) (Auto) 1 % (0-3) Neutrophils # (Auto) 7.2 x10^3uL (1.8-7.7) Lymphocytes # (Auto) 1.7 x10^3/uL (1.0-4.8) Monocytes # (Auto) 1.3 x10^3/uL (0.0-1.1) Eosinophils # (Auto) 0.1 x10^3/uL (0.0-0.7) Basophils # (Auto) 0.1 x10^3/uL (0.0-0.2) Sodium Level 144 mmol/L (136-145) Potassium Level 3.7 mmol/L (3.5-5.1) Chloride Level 109 mmol/L (98-107) Carbon Dioxide Level 29 mmol/L (21-32) Anion Gap 6 (6-14) Blood Urea Nitrogen 17 mg/dL (7-20) Creatinine 0.8 mg/dL (0.6-1.0) Estimated GFR (Cockcroft-Gault) 72.0 Glucose Level 83 mg/dL (70-99) Calcium Level 8.9 mg/dL (8.5-10.1) Microbiology 07/17/18 Blood Culture - Preliminary, Resulted NO GROWTH AFTER 1 DAY Medications Current Medications Sodium Chloride 1,000 ml @ 1,000 mls/hr Q1H IV Last administered on 07/17/18at 08:15; Start 07/17/18 at 06:45; Stop 07/17/18 at 07:44; Status DC Acetaminophen (Tylenol) 1,000 mg 1X ONCE PO Last administered on 07/17/18at 08: 13; Start 07/17/18 at 06:45; Stop 07/17/18 at 06:46; Status DC Ceftriaxone Sodium (Rocephin) 1 gm 1X ONCE IVP Last administered on 07/17/18at 10:24; Start 07/17/18 at 10:15; Stop 07/17/18 at 10:16; Status DC Ondansetron HCl (Zofran) 4 mg PRN Q8HRS PRN IV NAUSEA/VOMITING; Start 07/17/18 at 10:15; Stop 07/18/18 at 10:14; Status DC Sodium Chloride 1,000 ml @ 125 mls/hr Q8H IV Last administered on 07/18/18at 04: 15; Start 07/17/18 at 10:07; Stop 07/18/18 at 10:06; Status DC Acetaminophen (Tylenol) 650 mg PRN Q4HRS PRN PO FEVER Last administered on 08:31; Start 07/17/18 at 10:15; Stop 07/18/18 at 10:14; Status DC Losartan Potassium (Cozaar) 50 mg DAILY PO Last administered on 07/18/18 08:30 ; Start 07/17/18 at 17:00 Calcium/Vitamin D (Oscal D 500mg/ 200uts) 1 tab BIDWMEALS PO Last administered on 07/18/18at 08:30; Start 07/17/18 at 17:00 Multivitamins (Thera M Plus) 1 tab DAILY PO Last administered on 07/18/18at 08:34 ; Start 07/18/18 at 09:00 Losartan Potassium (Cozaar) 50 mg DAILY PO ; Start 07/18/18 at 09:00; Status UNV Active Scripts Active Reported Ti-Citrate Plus Vitamin D Tab (Calcium Citrate/Vitamin D2) 1 Each Tablet 1 Each PO BID Multivitamins (Multivitamin) 1 Each Tablet 1 Tab PO DAILY Losartan Potassium 50 Mg Tablet 50 Mg PO DAILY Vitals/I & O Vital Sign - Last 24 Hours 07/17/18 07/17/18 07/17/18 07/17/18 11:56 15:00 17:48 19:54 Temp 97.9 97.9 100.5 97.9 97.9 100.5 Pulse 63 64 84 94 Resp 18 18 18 B/P (MAP) 113/55 (74) 129/59 (82) 178/87 148/72 (97) Pulse Ox 92 97 94 O2 Delivery Room Air Room Air Room Air 07/17/18 07/17/18 07/18/18 07/18/18 20:07 23:10 03:26 03:33 Temp 98.9 98.6 98.6 98.9 98.6 98.6 Pulse 64 65 63 Resp 18 18 18 B/P (MAP) 111/62 (78) 105/97 (100) 134/67 (89) Pulse Ox 96 96 97 O2 Delivery Room Air Room Air Room Air Room Air 07/18/18 07/18/18 07/18/18 07/18/18 03:35 07:05 08:00 08:30 Temp 98.6 98.4 98.6 98.4 Pulse 69 68 68 Resp 20 16 B/P (MAP) 130/62 (84) 105/58 (74) 105/58 Pulse Ox 95 94 O2 Delivery Room Air Room Air Room Air 07/18/18 07/18/18 07/18/18 11:00 11:00 11:00 Temp 98.1 98.1 Pulse 58 Resp 18 B/P (MAP) 108/64 (79) 120/49 (72) 112/65 (81) Pulse Ox 96 O2 Delivery Room Air Intake and Output 07/17/18 07/17/18 07/18/18 15:01 23:01 07:01 Intake Total 1250 ml 450 ml 50 ml Output Total 500 ml Balance 1250 ml -50 ml 50 ml FLORIAN HOLDEN MD Jul 18, 2018 11:33
[2018-07-18] MEDS ORDERED: cefTRIAXone IV Push 1 GM VIAL. IVP ONE (17:00)
[2018-07-18] MEDS: LACTOBACILLUS RHAMNOSUS GG 1 CAPSULE. PO SCH (20:57)
[2018-07-18] MEDS: BUTALB/APAP/CAFEIN 50/325/40MG TABLET. PO PRN (20:58)
[2018-07-19 03:30] VITALS: BP 122/62
[2018-07-19 07:00] VITALS: BP 124/76
[2018-07-19] MEDS: CALCIUM CARB/VIT D3 500/200 TABLET. PO SCH ×2 (08:45→18:17)
[2018-07-19] MEDS: LACTOBACILLUS RHAMNOSUS GG 1 CAPSULE. PO SCH ×2 (08:45→21:20)
[2018-07-19] MEDS: MULTIVITAMIN with MINERAL TABLET. PO SCH (08:45)
[2018-07-19] MEDS: LOSARTAN POTASSIUM 50 MG TABLET. PO SCH (08:47)
--- NOTE | 2018-07-19 10:08 | PDOC ---
PROGRESS NOTES Chief Complaint Chief Complaint UTI Confusion secondary to the above versus hypertensive encephalopathy currently resolved Essential hypertension with episodes of uncontrolled blood pressure now improved Plan Continue with losartan follow sensitivities. continue rocephin until report available. Wait for cultures to be reported in the a.m. Reassess in the a.m. hopefully discharge History of Present Illness History of Present Illness Patient relates having had another episode of somewhat not feeling well in her head. The patient says that she couldn't get her head together and at that moment apparently did check her blood pressure was high. Reassurance has been provided no slurred speech no focal neurological deficits were reported either by the patient or the nursing staff. No fever or chills reported Vitals Vitals Vital Signs Date Time Temp Pulse Resp B/P (MAP) Pulse Ox O2 Delivery O2 Flow Rate FiO2 07/19/18 08:47 60 124/76 07/19/18 07:00 98.9 16 94 Room Air 98.9 Physical Exam Physical Exam Gen.: well-developed well-nourished in no apparent distress Head: Normal shape atraumatic Eyes: Pupils equal reactive to light and accommodation, normal conjunctivae and lids Ears: Normal shape Nose: Normal shape no trauma Mouth: No exudates of the back of throat no thrush no lesions Neck: Supple no JVD no carotid bruit or lymphadenopathy no thyromegaly Chest: Lungs clear to auscultation with good inspiratory effort no crackles rales or rhonchi Cardiovascular: S1-S2 regular rhythm no murmurs gallops or rubs Abdomen: Bowel sounds present soft nontender no hepatosplenomegaly appreciated sign Extremities: No clubbing no cyanosis no edema peripheral pulses palpated bilaterally Neurological: Alert awake oriented in person time place and situation, cranial nerves II through XII intact, no motor or sensory deficits appreciated Psych: Appropriate mood, cooperative Assessment and Plan Assessmemt and Plan Problems Medical Problems: (1) Altered mental state Status: Acute (2) UTI (urinary tract infection) Status: Acute Comment Review of Relevant I have reviewed the following items yony (where applicable) has been applied. Labs Laboratory Tests Test 07/17/18 17:50 07/18/18 02:50 Glucose (Fingerstick) 90 mg/dL (70-99) White Blood Count 10.5 x10^3/uL (4.0-11.0) Red Blood Count 4.19 x10^6/uL (3.50-5.40) Hemoglobin 13.0 g/dL (12.0-15.5) Hematocrit 39.8 % (36.0-47.0) Mean Corpuscular Volume 95 fL (79-100) Mean Corpuscular Hemoglobin 31 pg (25-35) Mean Corpuscular Hemoglobin Concent 33 g/dL (31-37) Red Cell Distribution Width 14.3 % (11.5-14.5) Platelet Count 216 x10^3/uL (140-400) Neutrophils (%) (Auto) 69 % (31-73) Lymphocytes (%) (Auto) 17 % (24-48) Monocytes (%) (Auto) 12 % (0-9) Eosinophils (%) (Auto) 1 % (0-3) Basophils (%) (Auto) 1 % (0-3) Neutrophils # (Auto) 7.2 x10^3uL (1.8-7.7) Lymphocytes # (Auto) 1.7 x10^3/uL (1.0-4.8) Monocytes # (Auto) 1.3 x10^3/uL (0.0-1.1) Eosinophils # (Auto) 0.1 x10^3/uL (0.0-0.7) Basophils # (Auto) 0.1 x10^3/uL (0.0-0.2) Sodium Level 144 mmol/L (136-145) Potassium Level 3.7 mmol/L (3.5-5.1) Chloride Level 109 mmol/L (98-107) Carbon Dioxide Level 29 mmol/L (21-32) Anion Gap 6 (6-14) Blood Urea Nitrogen 17 mg/dL (7-20) Creatinine 0.8 mg/dL (0.6-1.0) Estimated GFR (Cockcroft-Gault) 72.0 Glucose Level 83 mg/dL (70-99) Calcium Level 8.9 mg/dL (8.5-10.1) Microbiology 07/17/18 Blood Culture - Preliminary, Resulted NO GROWTH AFTER 1 DAY 07/17/18 Urine Culture - Preliminary, Resulted 07/17/18 Urine Culture Result 1 (HOSSEIN) - Preliminary, Resulted Medications Current Medications Sodium Chloride 1,000 ml @ 1,000 mls/hr Q1H IV Last administered on 2/8/19at 08:15; Start 07/17/18 at 06:45; Stop 07/17/18 at 07:44; Status DC Acetaminophen (Tylenol) 1,000 mg 1X ONCE PO Last administered on 07/17/18 08: 13; Start 07/17/18 at 06:45; Stop 07/17/18 at 06:46; Status DC Ceftriaxone Sodium (Rocephin) 1 gm 1X ONCE IVP Last administered on 07/17/18 10:24; Start 07/17/18 at 10:15; Stop 07/17/18 at 10:16; Status DC Ondansetron HCl (Zofran) 4 mg PRN Q8HRS PRN IV NAUSEA/VOMITING; Start 07/17/18 at 10:15; Stop 07/18/18 at 10:14; Status DC Sodium Chloride 1,000 ml @ 125 mls/hr Q8H IV Last administered on 07/18/18 04: 15; Start 07/17/18 at 10:07; Stop 07/18/18 at 10:06; Status DC Acetaminophen (Tylenol) 650 mg PRN Q4HRS PRN PO FEVER Last administered on 08:31; Start 07/17/18 at 10:15; Stop 07/18/18 at 10:14; Status DC Losartan Potassium (Cozaar) 50 mg DAILY PO Last administered on 07/19/18 08:47 ; Start 07/17/18 at 17:00 Calcium/Vitamin D (Oscal D 500mg/ 200uts) 1 tab BIDWMEALS PO Last administered on 07/19/18 08:45; Start 07/17/18 at 17:00 Multivitamins (Thera M Plus) 1 tab DAILY PO Last administered on 07/19/18 08: 45; Start 07/18/18 at 09:00 Losartan Potassium (Cozaar) 50 mg DAILY PO ; Start 07/18/18 at 09:00; Status UNV Ceftriaxone Sodium (Rocephin) 1 gm 1X ONCE IVP Last administered on 07/18/18 17:52; Start 07/18/18 at 17:00; Stop 07/18/18 at 17:01; Status DC Lactobacillus Rhamnosus (Culturelle) 1 cap BID PO Last administered on 2/10/ 19at 08:45; Start 07/18/18 at 21:00 Acetaminophen/ Butalbital/ Caffeine (Fioricet) 1 tab PRN Q6HRS PRN PO MIGRAINE HEADACHE Last administered on 07/18/18at 20:58; Start 07/18/18 at 18:45 Ceftriaxone Sodium (Rocephin) 1 gm Q24H IVP ; Start 07/19/18 at 18:00 Active Scripts Active Reported Ti-Citrate Plus Vitamin D Tab (Calcium Citrate/Vitamin D2) 1 Each Tablet 1 Each PO BID Multivitamins (Multivitamin) 1 Each Tablet 1 Tab PO DAILY Losartan Potassium 50 Mg Tablet 50 Mg PO DAILY Vitals/I & O Vital Sign - Last 24 Hours 07/18/18 07/18/18 07/18/18 07/18/18 11:00 11:00 11:00 15:00 Temp 98.1 98.7 98.1 98.7 Pulse 58 74 Resp 18 20 B/P (MAP) 108/64 (79) 120/49 (72) 112/65 (81) 116/68 (84) Pulse Ox 96 95 O2 Delivery Room Air Room Air 07/18/18 07/18/18 07/18/18 07/18/18 19:25 20:00 20:47 20:49 Temp 98.9 98.9 98.9 98.9 98.9 98.9 Pulse 70 80 93 Resp 20 20 20 B/P (MAP) 132/68 (89) 125/62 (83) 141/76 (97) Pulse Ox 96 97 96 O2 Delivery Room Air Room Air Room Air Room Air 07/18/18 07/19/18 07/19/18 07/19/18 23:38 03:30 07:00 08:47 Temp 98.9 98.5 98.9 98.9 98.5 98.9 Pulse 62 58 60 60 Resp 20 20 16 B/P (MAP) 132/63 (86) 122/62 (82) 124/76 (92) 124/76 Pulse Ox 94 92 94 O2 Delivery Room Air Room Air Room Air Intake and Output 07/18/18 07/18/18 07/19/18 15:01 23:01 07:01 Intake Total 420 ml 430 ml 100 ml Balance 420 ml 430 ml 100 ml FLORIAN HOLDEN MD Jul 19, 2018 10:08
[2018-07-19 11:00] VITALS: BP 134/77
[2018-07-19 15:00] VITALS: BP 119/70
[2018-07-19] MEDS ORDERED: cefTRIAXone IV Push 1 GM VIAL. IVP SCH (18:00)
[2018-07-19 19:30] VITALS: BP 146/79
[2018-07-19] MEDS: BUTALB/APAP/CAFEIN 50/325/40MG TABLET. PO PRN (21:20)
[2018-07-19 23:46] VITALS: BP 125/64
[2018-07-20 03:28] VITALS: BP 147/66
[2018-07-20 07:33] VITALS: BP 124/82
[2018-07-20] MEDS: LACTOBACILLUS RHAMNOSUS GG 1 CAPSULE. PO SCH (08:47)
[2018-07-20] MEDS: CALCIUM CARB/VIT D3 500/200 TABLET. PO SCH ×2 (08:47→16:24)
[2018-07-20] MEDS: MULTIVITAMIN with MINERAL TABLET. PO SCH (08:48)
[2018-07-20] MEDS: LOSARTAN POTASSIUM 50 MG TABLET. PO SCH (08:49)
[2018-07-20 11:18] VITALS: BP 144/82
[2018-07-20] MEDS ORDERED: CIPR500T94 PO (13:49)
--- NOTE | 2018-07-20 13:58 | PDOC3 ---
Discharge Summary Visit Information Date of Admission: Jul 17, 2018 Date of Discharge: Jul 20, 2018 Admitting Diagnosis Comment: Altered mental status, resolved upon admission UTI Final Diagnosis Problems Medical Problems: (1) Altered mental state resolved upon admission Status: Acute (2) UTI (urinary tract infection) Status: Acute Brief Hospital Course Allergies Allergies Uncoded Allergies Type Severity Reaction Last Updated Verified SHINGLES VACCINE Allergy Mild L BREAST BRUISED 07/17/18 Vital Signs Vital Signs Date Time Temp Pulse Resp B/P (MAP) Pulse Ox O2 Delivery O2 Flow Rate FiO2 07/20/18 11:18 98.1 71 18 144/82 (102) 93 Room Air 98.1 Brief Hospital Course Ms. Rutherford is a 63 old female who presented with an episode of confusion and not being able to put her thoughts together as per the patient. The patient suffered what seemed to be a presyncopal episode which may have been a vasovagal episode combined with the presence of an underlying urinary tract infection. Patient was admitted to the medical for for observation of her mental status which did not percent Advanced while inpatient. Patient was diagnosed with a urinary tract infection with gram-negative rods. On the day of discharge her sensitivities came back she has a Escherichia coli UTI which is pansensitive at the present time. Reassurance has been provided the patient and interventions in order to minimize the risk for recurrence was given to the patient prior to discharge. Signs and symptoms of alarm were discussed prior to discharge the side effects of medications as well. She will be going home to complete a course of antibiotics by mouth and she is in good spirits to be discharged home There was a question whether the patient had this event due to hypertension but this does not seem to be the case share blood pressure remained very well controlled during her hospital stay. Physical exam Lungs clear to auscultation bilaterally with good inspiratory effort Cardia vascular the S1-S2 regular rhythm no murmurs or rubs Discharge Information Condition at Discharge: Improved Follow Up: Weeks (1 week with primary care physician) Disposition/Orders: D/C to Home Scheduled Calcium Citrate/Vitamin D2 (Ti-Citrate Plus Vitamin D Tab) 1 Each Tablet, 1 EACH PO BID for ukn, (Reported) Entered as Reported by: MIGNON WATERS on 07/17/18 1240 Last Taken: Unknown Dose on 07/16/18 Last Action: Converted on 07/17/18 1643 by MIGNON WATERS Ciprofloxacin Hcl (Cipro) 500 Mg Tablet, 1 TAB PO BID for UTI for 3 Days, #6 Prescribed by: FLORIAN HOLDEN MD on 07/20/18 1349 Losartan Potassium (Losartan Potassium) 50 Mg Tablet, 50 MG PO DAILY, (Reported) Entered as Reported by: Tori Corey on 10/18/14 1302 Last Taken: Unknown Dose on 07/16/18 0800 Last Action: Continued on 07/17/181642 by MIGNON WATERS Multivitamin (Multivitamins) 1 Each Tablet, 1 TAB PO DAILY for ukn, #90 Ref 3 ( Reported) Entered as Reported by: MIGNON WATERS on 07/17/18 1240 Last Taken: Unknown Dose on Unknown Date & Time Last Action: Converted on 07/17/181642 by FLORIAN MANN MD Jul 20, 2018 13:58
--- NOTE | 2018-07-20 16:35 | NUR ---
Pt discharged to home with . Reviewed discharge instructions for diet, activity, medications and follow up. Verbalized understanding. Pt able to return to work with no restrictions.
== END 2018-07-20 16:38 | disposition home or self-care (01) | DRG 871 ==
LOC: ER 06:28 → 6 SOUTH 10:05
PROVIDERS: ADMIT Internal Medicine; ATTEND Internal Medicine
DX: A41.9 Sepsis, unspecified organism (principal); G93.41 Metabolic encephalopathy; N39.0 Urinary tract infection, site not specified; I10 Essential (primary) hypertension; F41.9 Anxiety disorder, unspecified; M54.5 Low back pain; B96.20 Unspecified Escherichia coli [E. coli] as the cause of diseases classified elsewhere; B96.89 Other specified bacterial agents as the cause of diseases classified elsewhere; Z85.3 Personal history of malignant neoplasm of breast; Z90.49 Acquired absence of other specified parts of digestive tract; Z79.899 Other long term (current) drug therapy
CPT/HCPCS: 36415; 70450; 71045; 80048; 80053; 81001; 82962; 83605; 85025; 87040; 87070; 87086; 87186; 87804; 87880; 96374; J0696; J7030; 99285-25

== ENCOUNTER → 2019-06-21 | Outpatient (CLI) | payer MEDICARE, OTHER ==
[~2019-06-21] MED LIST changes: +CALC-337 PO; +CIPR500T94 PO; +MULT1TAB52 PO
--- NOTE | 2019-06-21 12:31 | KCIC ---
EXAM: Bilateral knees, 3 views. HISTORY: Pain. COMPARISON: None. FINDINGS: 3 views of both knees are obtained. There is no acute fracture, dislocation or subluxation. There is mild bilateral tricompartmental spurring. There is suspected mild left genu valgus. There is a small left knee effusion. There is trace right knee fluid. There is slight ossification along the left medial collateral ligament, likely due to sequela of remote injury. IMPRESSION: 1. Mild tricompartmental osteoarthrosis of both knees. 2. Small left and trace right knee effusions. 3. Suspected mild left genu valgus. Electronically signed by: Taisha Mireles MD (06/21/2019 12:28 PM) [id number]
== END | disposition home or self-care (01) ==
LOC: KCIC 11:46
PROVIDERS: ATTEND Family Medicine
DX: M17.0 Bilateral primary osteoarthritis of knee (principal); M25.462 Effusion, left knee
CPT/HCPCS: 73562

== ENCOUNTER → 2019-12-13 | Outpatient (CLI) | payer MEDICARE, OTHER ==
[~2019-12-13] MED LIST changes: +DIATRIZOATE MEGLUMINE 18% 300 ML SOLUTION. BLADIN ONE; +MULT-445 PO; -MULT1TAB52 PO
--- NOTE | 2019-12-13 15:40 | RAD ---
Cystogram INDICATION: Chronic UTI TECHNIQUE: A total of 2.4 minutes of fluoroscopy time was used in acquiring 33 fluoroscopic images of the urinary tract focused on the urinary bladder during and after instillation of a total of 500 mL of Cystografin in the urinary bladder via bladder catheter. Prevoid, voiding and post void images were acquired. An image of the upper urinary tract was also obtained. FINDINGS: Early images show no evidence of a ureterocele or bladder filling defect. Some prolapse of the bladder neck was observed with relatively early filling of the bladder. Bilateral oblique views with a bladder somewhat distended with 500 mL of contrast material showed no evidence of vesicoureteral reflux. Patient initially did not report a sensation of bladder filling so a second bottle of Cystografin was prepared for infusion but before the bottle arrive, patient ultimately reported a sense of fullness so additional intraluminal contrast administration was not pursued. With the catheter removed and patient placed upright, the urinary bladder prolapse became even more pronounced. Initiation of voiding revealed no evidence of a urethral diverticulum. The bladder nearly completely empty but is a small residual at the neck of the collapsed bladder that eventually evacuated. Single radiographic view of the upper abdomen showed no evidence of refluxed contrast material into the renal calyces. There is no significant postvoid residual. Moderate stool in the rectal vault incidentally noted. IMPRESSION: Cystogram shows bladder prolapse and somewhat capacious bladder with filling up to 500 mL without significant discomfort. No urethral diverticulum or significant postvoid residual. Electronically signed by: Magen Lee MD (12/13/2019 3:37 PM) [id number]
== END | disposition home or self-care (01) ==
LOC: RAD 08:36
PROVIDERS: ATTEND Family Medicine
DX: N39.0 Urinary tract infection, site not specified (principal); N81.10 Cystocele, unspecified
CPT/HCPCS: 74430; Q9958